=== PATIENT | female | born 1970 | race African-American/Black ===

== ENCOUNTER 2017-01-23 14:16 | Emergency (ER) | payer OTHER ==
[~2017-01-23] VITALS: Ht 162.6 cm; Wt 72.6 kg
[~2017-01-23 14:16] MED LIST: COLACE100 MG ORAL; IBUPROFEN600 MG ORAL; NORCO 5-325 TA1 EACH ORAL; ROBAXIN-750750 MG PO
[2017-01-23] MEDS ORDERED: NKM (14:47)
[2017-01-23 14:52] VITALS: BP 117/74
[2017-01-23] MEDS ORDERED: Ketorolac 60mg Inj IM ONE (15:00)
--- NOTE | 2017-01-23 15:05 | Emergency Room Report ---
History of Present Illness General Chief Complaint: Neck Pain Source: Patient Present Illness HPI 46-year-old female presents emergency department complaining of right-sided neck tightness that radiates down into the shoulder and upper back x3 weeks. Patient denies appreciable fall or trauma. 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 Patient denies erythema, clicking, pain with range of motion. Patient states discomfort feels, tight and swollen all along the right side denies midline neck pain or back pain. Patient reports on occasion will radiate up her and caused headache. Denies nausea, vomiting, fevers, chills, recent illness or ill contacts. Denies numbness tingling or loss of sensation or gross motor movements of the extremities, incontinence of bowel or bladder. Denies CP, Palpitations, LOC, AMS, dizziness, Changes in Vision, Sensation, paresthesias, or a sudden severe headache. Allergies: Coded Allergies: SULFAMETHOXAZOLE (Unverified Allergy, Severe, 03/11/15) TRIMETHOPRIM (Unverified Allergy, Severe, 03/11/15) PHENAZOPYRIDINE (Verified Allergy, Unknown, 03/11/15) Patient History Past Medical History: see triage record Past Surgical History: none Pertinent Family History: none Last Menstrual Period: 01/16/17 Now: No Immunizations: UTD Reviewed Nursing Documentation: PMH: Agreed, PSxH: Agreed Nursing Documentation-PMH Past Medical History: No Stated History Hx Gastrointestinal Problems: Yes - HEMORRHOIDS Review of Systems All Other Systems: negative except mentioned in HPI Physical Exam Vital Signs Date Time Temp Pulse Resp B/P Pulse Ox O2 Delivery O2 Flow Rate FiO2 01/23/17 14:40 98.1 64 20 117/74 96 Room Air Sp02 EP Interpretation: reviewed, normal General Appearance: no apparent distress, alert, GCS 15, non-toxic Head: normocephalic, atraumatic Eyes: bilateral eye PERRL, bilateral eye normal inspection ENT: hearing grossly normal, normal pharynx, no angioedema, normal voice, TMs + canals normal, uvula midline Neck: full range of motion, supple/symm/no masses, tender lateral - right lateral TTP of the neck, and rhomboid, no bony ttp, no midline ttp, FROM, no erythema, no obvious deformity. Respiratory: chest non-tender, lungs clear, normal breath sounds, speaking full sentences Cardiovascular #1: regular rate, rhythm, no edema, normal capillary refill Cardiovascular #2: 2+ radial (R), 2+ radial (L) Rectal: deferred Genitourinary: normal inspection Musculoskeletal: back normal, gait/station normal, normal range of motion, non- tender, tender - right lateral TTP of the neck, and rhomboid, no bony ttp, no midline ttp, FROM, no erythema, no obvious deformity. Neurologic: alert, oriented x3, responsive, motor strength/tone normal, sensory intact, speech normal Psychiatric: judgement/insight normal, memory normal, mood/affect normal Skin: normal color, no rash, warm/dry, well hydrated Lymphatic: no adenopathy Medical Decision Making PA Attestation Dr. Trotter is my supervising Physician whom patient management has been discussed with. Diagnostic Impression: Primary Impression: Neck muscle spasm Additional Impression: Neck muscle strain Qualified Codes: S16.1XXA - Strain of muscle, fascia and tendon at neck level , initial encounter ER Course 46-year-old female presents emergency department complaining of right-sided neck tightness that radiates down into the shoulder and upper back x3 weeks. Patient denies appreciable fall or trauma. 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 Patient denies erythema, clicking, pain with range of motion. Patient states discomfort feels, tight and swollen all along the right side denies midline neck pain or back pain. Patient reports on occasion will radiate up her and caused headache. Denies nausea, vomiting, fevers, chills, recent illness or ill contacts. - no Saddle anesthesia Ddx considered but are not limited to Fracture, dislocation, contusion, Sprain/ Strain/Spasm. Vital signs: are WNL, pt. is afebrile H&PE are most consistent with muscular strain/spasm of neck right side. ORDERS: - X-ray not required at this time no bony tenderness on PE. no focal neurological deficits ED INTERVENTIONS: - Toradol IM -d/w pt. will try conservative management, and to follow up with PCP. D/w pt. to return promptly to ED with worsening or new symptoms. DISCHARGE: At this time pt. is stable for d/c to home. Will provide printed patient care instructions, and any necessary prescriptions. Care plan and follow up instructions have been discussed with the patient prior to discharge. Last Vital Signs Date Time Temp Pulse Resp B/P Pulse Ox O2 Delivery O2 Flow Rate FiO2 01/23/17 14:52 98.1 64 20 117/74 96 Room Air Disposition: HOME, SELF-CARE Condition: Stable Scripts Ibuprofen* (MOTRIN*) 400 Mg Tablet 400 MG ORAL THREE TIMES A DAY for 10 Days, #30 TAB 0 Refills Prov: Minerva Jiménez 01/23/17 Carisoprodol* (SOMA*) 350 Mg Tablet 350 MG PO ONCE, #1 TAB Prov: Minerva Jiménez 01/23/17 Cyclobenzaprine Hcl* (FLEXERIL*) 10 Mg Tablet 10 MG ORAL THREE TIMES A DAY for 7 Days, #21 TAB Prov: Minerva Jiménez 01/23/17 Departure Forms: Return to Work Return to Work Date: January 26, 2017 Work Restrictions: No Heavy Lifting, No Prolonged Standing Other Restrictions: light duty x 1 week. Return to Full Activity: February 01, 2017 Patient Instructions: Muscle Cramps and Spasms, [id number], Muscle Strain, [id number] Additional Instructions: Take medications as directed. Follow up with PCP in 3-5 days Return sooner to ED if new symptoms occur, or current symptoms become worse. Do not drink alcohol, drive, or operate heavy machinery while taking muscle relaxers as this may cause drowsiness. - Please note that this Emergency Department Report was dictated using [employer] maker technology software, occasionally this can lead to erroneous entry secondary to interpretation by the dictation equipment. Minerva Jiménez January 23, 2017 15:05
[2017-01-23] MEDS ORDERED: IBUPROFEN400 MG ORAL (15:10)
[2017-01-23] MEDS ORDERED: CYCLOBENZAPRINE10 MG ORAL (15:10)
[2017-01-23] MEDS ORDERED: SOMA350 MG PO (15:10)
[2017-01-23 15:20] VITALS: BP 117/74
== END 2017-01-23 15:40 | disposition home or self-care (01) ==
LOC: EMR 15:22
DX: M62.838 Other muscle spasm (principal); S16.1XXA Strain of muscle, fascia and tendon at neck level, initial encounter; X58.XXXA Exposure to other specified factors, initial encounter; Y92.89 Other specified places as the place of occurrence of the external cause
CPT/HCPCS: 96372; 99284

== ENCOUNTER 2018-09-04 17:00 | Emergency (ER) | payer OTHER ==
[~2018-09-04] VITALS: Ht 162.6 cm; Wt 74.4 kg
[~2018-09-04 17:00] MED LIST changes: +CYCLOBENZAPRINE10 MG ORAL; +IBUPROFEN400 MG ORAL; +NKM; +SOMA350 MG PO
[2018-09-04 18:44] VITALS: BP 124/79
[2018-09-04] MEDS ORDERED: ASPIR-LOW81 MG ORAL (19:16)
[2018-09-04 19:23] VITALS: BP 121/81
--- NOTE | 2018-09-05 09:12 | Diagnostic Imaging Report ---
Indications: Head pain, tingling sensation in left-sided face, radiating to left arm Technique: Spiral acquisitions obtained through the brain. Angled axial and coronal 5 x 5 mm slices were reconstructed. Total dose length product 1308.93 mGycm. CTDI vol(s) 70.38 mGy. Dose reduction achieved using automated exposure control Comparison: None. Findings: There is normal anatomic variant of cavum septum pellucidum. No acute intracranial hemorrhage or edema, mass effect, nor midline shift. Normal king-white differentiation. Normal-sized ventricles and extra-axial CSF spaces. Intact calvarium. Visualized orbits and sinuses are unremarkable. Impression: Negative This agrees with the preliminary interpretation provided overnight by [facility]erad[facility] service. The CT scanner at [facility] is accredited by the [employer] and the scans are performed using protocols designed to limit radiation exposure to as low as reasonably achievable to attain images of sufficient resolution adequate for diagnostic evaluation.
--- NOTE | 2018-09-05 14:46 | Emergency Room Report ---
History of Present Illness General Chief Complaint: General Complaint Source: Patient Present Illness HPI Patient is a 48 female presented after increased left-sided facial and arm numbness. Patient reports having prior history of chronic pain.Patient states that she had been having symptoms for approximately 2 days. Patient had previously been told this was related to prior back injury. Patient reports having no weakness. She denies any severe headache. She had not been vomiting. She denies any recent head trauma. She denied any voice changes or double vision. Allergies: Coded Allergies: SULFAMETHOXAZOLE (Unverified Allergy, Severe, 03/11/15) TRIMETHOPRIM (Unverified Allergy, Severe, 03/11/15) PHENAZOPYRIDINE (Verified Allergy, Unknown, 03/11/15) Patient History Past Medical History: see triage record Reviewed Nursing Documentation: PMH: Agreed; PSxH: Agreed Nursing Documentation-PMH Hx Gastrointestinal Problems: Yes - HEMORRHOIDS Review of Systems All Other Systems: negative except mentioned in HPI Physical Exam Vital Signs Date Time Temp Pulse Resp B/P (MAP) Pulse Ox O2 Delivery O2 Flow Rate FiO2 09/04/18 17:03 98.1 60 17 130/85 98 Room Air General Appearance: well appearing, no apparent distress, alert, GCS 15 Head: normocephalic, atraumatic Eyes: bilateral eye PERRL ENT: hearing grossly normal, normal voice Neck: full range of motion, supple Respiratory: lungs clear, normal breath sounds, no respiratory distress, speaking full sentences Cardiovascular #1: normal inspection, normal peripheral pulses, regular rate, rhythm, no edema Gastrointestinal: normal bowel sounds, non tender Musculoskeletal: normal inspection, back normal, digits/nails normal, normal range of motion, no calf tenderness Neurologic: normal inspection, alert, oriented x3, responsive, bessemer bottom maker III-XII nml as tested, motor strength/tone normal, DTRs symmetric, cerebellar normal, normal gait, speech normal Psychiatric: normal inspection, judgement/insight normal, mood/affect normal Skin: no rash Medical Decision Making Diagnostic Impression: Primary Impression: Paresthesia ER Course Patient presented for left-sided numbness. Differential diagnosis include was not limited to CVA, subarachnoid hemorrhage, multiple sclerosis, myocardial infarction among others. Because of complexity of patient's case imaging studies were ordered. 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 EKG interpreted by me showed normal sinus rhythm without acute ST or T wave changes. Patient was advised to the CT findings. Patient was advised to follow-up with her primary care physician for neurology referral. She was advised that she may need MRI for further workup. She is advised to return if she began having worsening headache persistent vomiting weakness or other concerns Last Vital Signs Date Time Temp Pulse Resp B/P (MAP) Pulse Ox O2 Delivery O2 Flow Rate FiO2 09/04/18 19:23 98.4 86 18 121/81 98 Room Air Status: unchanged Disposition: HOME, SELF-CARE Condition: Stable Scripts Aspirin* (ASPIR-LOW*) 81 Mg Tablet. 81 MG ORAL DAILY, #30 TAB Prov: Clayton Huertas MD 09/04/18 Referrals: [facility]ERR[facility] (PCP) Patient Instructions: Paresthesia Additional Instructions: Follow up with your physician in 1-2 days. Return if worse Clayton Huertas MD Sep 05, 2018 14:46
== END 2018-09-04 19:22 | disposition home or self-care (01) ==
LOC: EMR 19:20
DX: R20.2 Paresthesia of skin (principal); R51 Headache; Z88.2 Allergy status to sulfonamides; Z88.8 Allergy status to other drugs, medicaments and biological substances; G89.29 Other chronic pain
CPT/HCPCS: 70450; 81025; 93005; 99284

== ENCOUNTER 2019-06-22 20:10 | Emergency (ER) | payer OTHER ==
[~2019-06-22] VITALS: Ht 162.6 cm; Wt 59.0 kg
[~2019-06-22 20:10] MED LIST changes: +ASPIR-LOW81 MG ORAL
--- NOTE | 2019-06-22 20:27 | Emergency Room Report ---
History of Present Illness General Chief Complaint: Eye Problems Source: Patient Present Illness HPI 49-year-old female with no significant past medical history here complaining of feeling uncomfortable in the right eye x3 days. Patient reports that her symptoms started after she was working out at the gym. Denies any foreign body being in her eye, chemical exposure, discharge from the eye. Denies photophobia , blurry vision, pain in her eye. Complains of minimal irritation and pruritus in the eye. Patient does not wear any contact lenses. Denies having history of pterygium and pinguecula. Has not taken medication for symptom relief. A pinguecula Noted as well as subconjunctival hemorrhage in the right eye. Patient has full vision and no apparent distress. Allergies: Coded Allergies: SULFAMETHOXAZOLE (Unverified Allergy, Severe, 03/11/15) TRIMETHOPRIM (Unverified Allergy, Severe, 03/11/15) PHENAZOPYRIDINE (Verified Allergy, Unknown, 03/11/15) Patient History Past Medical History: see triage record Past Surgical History: unable to obtain Pertinent Family History: none Last Menstrual Period: 05/26/19 Now: No : 8 Para: 4 Reviewed Nursing Documentation: PMH: Agreed; PSxH: Agreed Nursing Documentation-PMH Past Medical History: No Stated History Hx Gastrointestinal Problems: Yes - HEMORRHOIDS Review of Systems All Other Systems: negative except mentioned in HPI Physical Exam Vital Signs Date Time Temp Pulse Resp B/P (MAP) Pulse Ox O2 Delivery O2 Flow Rate FiO2 06/22/19 20:14 98.1 92 16 119/81 (94) 97 Room Air Sp02 EP Interpretation: reviewed, normal General Appearance: no apparent distress, alert, GCS 15, non-toxic Head: normocephalic, atraumatic Eyes: right eye other - subconjunctival hemorrhage, pinguecula ENT: hearing grossly normal, normal pharynx, no angioedema, normal voice Neck: full range of motion, supple/symm/no masses Respiratory: chest non-tender, lungs clear, normal breath sounds, no wheezing, speaking full sentences Cardiovascular #1: regular rate, rhythm, no edema, no murmur Gastrointestinal: normal bowel sounds, non tender, soft, non-distended, no guarding, no rebound Genitourinary: normal inspection, no CVA tenderness Musculoskeletal: back normal, gait/station normal, normal range of motion, non- tender Neurologic: normal inspection, alert, oriented x3, responsive Psychiatric: judgement/insight normal, memory normal, mood/affect normal, no suicidal/homicidal ideation Skin: no rash Lymphatic: no adenopathy Medical Decision Making PA Attestation All my diagnosis and treatment plans were reviewed ad discussed with my supervising physician Dr. Hui Diagnostic Impression: Primary Impression: Pinguecula of right eye Additional Impression: Subconjunctival hemorrhage of right eye ER Course 49-year-old female with no significant past medical history here complaining of feeling uncomfortable in the right eye x3 days. Patient reports that her symptoms started after she was working out at the gym. Denies any foreign body being in her eye, chemical exposure, discharge from the eye. Denies photophobia , blurry vision, pain in her eye. Complains of minimal irritation and pruritus in the eye. Patient does not wear any contact lenses. Denies having history of pterygium and pinguecula. Has not taken medication for symptom relief. pinguecula Noted as well as subconjunctival hemorrhage in the right eye. Patient has full vision and no apparent distress. Ddx considered but are not limited to: bacterial conjunctivitis, allergic conjunctivitis, viral conjunctivitis, periorbital cellulitis, global trauma, pinguecula, pterygium, subconjunctival hemorrhage Vital signs: are WNL, pt. is afebrile H&PE are most consistent with: Subconjunctival hemorrhage, pinguecula ORDERS: Zaditor ED INTERVENTIONS: None required at this time. DISCHARGE: At this time pt. is stable for d/c to home. Will provide printed patient care instructions, and any necessary prescriptions. Care plan and follow up instructions have been discussed with the patient prior to discharge. Take medication as directed follow-up with your primary care provider and steel placer if worsening symptoms return to the emergency room Last Vital Signs Date Time Temp Pulse Resp B/P (MAP) Pulse Ox O2 Delivery O2 Flow Rate FiO2 06/22/19 20:14 98.1 92 16 119/81 (94) 97 Room Air Disposition: HOME, SELF-CARE Condition: Stable Scripts Ketotifen Fumarate (ZADITOR) 5 Ml Drops 1 DROP RIGHT EYE BID for 7 Days, #5 ML 0 Refills Prov: Sahelimoghavami,Nahal PA 06/22/19 Patient Instructions: Subconjunctival Hemorrhage Additional Instructions: Follow-up with an steel placer avoid strenuous physical activity worsening symptoms return to the emergency room Adrienne Gilliam Jun 22, 2019 20:27
--- NOTE | 2019-06-22 20:28 | NUR ---
ED Nurse Note: Patient presents with complaints left eye irritaion, no known cause, x 2 days. denies pain. visual acuitiy 20/20; right eye 20/20; left eye 20/20. a04. nad. vss
[2019-06-22 20:29] VITALS: BP 119/81
[2019-06-22] MEDS ORDERED: ZADITOR5 ML RIGHT EYE (20:29)
--- NOTE | 2019-06-22 20:30 | NUR ---
ER DISCHARGE NOTE: Patient is cleared to be discharged per ERMD, pt is aox4, on room air, with stable vital signs. pt was given dc and prescription instructions, pt was able to verbalize understanding, pt id bandremoved. pt is able to ambulate with steady gait. pt took all belongings.
[2019-06-22 20:33] VITALS: BP 119/81
== END 2019-06-22 20:30 | disposition home or self-care (01) ==
LOC: EMR 20:27
DX: H11.151 Pinguecula, right eye (principal); H11.31 Conjunctival hemorrhage, right eye; Z88.2 Allergy status to sulfonamides; Z88.1 Allergy status to other antibiotic agents; Z88.8 Allergy status to other drugs, medicaments and biological substances
CPT/HCPCS: 99282

== ENCOUNTER 2020-02-10 20:36 | Emergency (ER) | payer OTHER ==
[~2020-02-10] VITALS: Ht 162.6 cm; Wt 76.2 kg
[~2020-02-10 20:36] MED LIST changes: +ZADITOR5 ML RIGHT EYE
--- NOTE | 2020-02-10 20:49 | Emergency Room Report ---
History of Present Illness General Chief Complaint: General Complaint Source: Patient (Pennie Page DO) Present Illness HPI This patient states that she has had vaginal bleeding and rectal bleeding for the past few days. She also has pain in her left lower quadrant of her abdomen. She denies diarrhea. She denies cough or congestion. She denies chest pain. She denies shortness of breath. She has no other complaints. (Pennie Page DO) Allergies: Coded Allergies: SULFAMETHOXAZOLE (Unverified Allergy, Severe, 03/11/15) TRIMETHOPRIM (Unverified Allergy, Severe, 03/11/15) PHENAZOPYRIDINE (Verified Allergy, Unknown, 03/11/15) COVID-19 Screening Contact w/high risk pt: No Recent Travel to affected area: No Experienced COVID-19 symptoms?: Yes COVID-19 symptoms experienced: Fever (T>100.4F or >38C) COVID-19 Testing performed KILNMAN: No (Pennie Page DO) Patient History Past Medical History: none Social History: Denies: smoking, alcohol use, drug use Last Menstrual Period: 01/27/20 Now: No Reviewed Nursing Documentation: PMH: Agreed; PSxH: Agreed (Pennie Page DO) Nursing Documentation-PMH Past Medical History: No Stated History Hx Gastrointestinal Problems: Yes - HEMORRHOIDS (Pennie Page DO) Review of Systems All Other Systems: negative except mentioned in HPI (Pennie Page DO) Physical Exam Vital Signs Date Time Temp Pulse Resp B/P (MAP) Pulse Ox O2 Delivery O2 Flow Rate FiO2 02/10/20 20:41 100.4 106 19 124/85 (98) 98 Sp02 EP Interpretation: reviewed, normal General Appearance: no apparent distress, alert, GCS 15, non-toxic Head: normocephalic, atraumatic Eyes: bilateral eye normal inspection, bilateral eye PERRL ENT: hearing grossly normal, normal pharynx, no angioedema, normal voice Neck: full range of motion, supple/symm/no masses Respiratory: no respiratory distress, no retraction, no accessory muscle use, speaking full sentences Gastrointestinal: normal bowel sounds, soft, non-distended, no guarding, no rebound, tenderness - TTP in the LLQ Rectal: deferred Musculoskeletal: back normal, normal range of motion, gait/station normal, non- tender Neurologic: alert, motor strength/tone normal, oriented x3, sensory intact, responsive, speech normal Psychiatric: judgement/insight normal, memory normal, mood/affect normal, no suicidal/homicidal ideation Skin: no rash, normal color (Pennie Page DO) Medical Decision Making Diagnostic Impression: Primary Impression: Fever Additional Impressions: Abdominal pain UTI (urinary tract infection) ER Course This patient presents with abdominal pain and is found to have a fever. Initially I suspected this was aggravation of the patient's known hemorrhoids, however, the fever and the pain in the left lower quadrant may be concerned for an intra-abdominal process. Therefore, I felt I should obtain a CT of the abdomen and pelvis. The patient is also pending labs at the time of this dictation. The patient is turned over to Dr. Stark. Please see his addendum for final results, impressions and disposition. Laboratory Tests Test 02/10/20 20:53 02/10/20 21:20 Urine Color Pale yellow Urine Appearance Very cloudy Urine pH 5 (4.5-8.0) Urine Specific [place] 1.015 (1.005-1.035) Urine Protein 2+ (NEGATIVE) H Urine Glucose (UA) Negative (NEGATIVE) Urine Ketones Negative (NEGATIVE) Urine Blood 5+ (NEGATIVE) H Urine Nitrite Negative (NEGATIVE) Urine Bilirubin Negative (NEGATIVE) Urine Urobilinogen Normal MG/DL (0.0-1.0) Urine Leukocyte Esterase 2+ (NEGATIVE) H Urine RBC Tntc /HPF (0 - 2) H Urine WBC 5-10 /HPF (0 - 2) H Urine Squamous Epithelial Cells Moderate /LPF (NONE/OCC) H Urine Bacteria Few /HPF (NONE) Urine HCG, Qualitative Negative (NEGATIVE) White Blood Count 11.2 K/UL (4.8-10.8) H Red Blood Count 4.04 M/UL (4.20-5.40) L Hemoglobin 11.8 G/DL (12.0-16.0) L Hematocrit 36.2 % (37.0-47.0) L Mean Corpuscular Volume 90 FL (80-99) Mean Corpuscular Hemoglobin 29.1 PG (27.0-31.0) Mean Corpuscular Hemoglobin Concent 32.5 G/DL (32.0-36.0) Red Cell Distribution Width 13.1 % (11.6-14.8) Platelet Count 330 K/UL (150-450) Mean Platelet Volume 6.4 FL (6.5-10.1) L Neutrophils (%) (Auto) 71.9 % (45.0-75.0) Lymphocytes (%) (Auto) 19.8 % (20.0-45.0) L Monocytes (%) (Auto) 6.7 % (1.0-10.0) Eosinophils (%) (Auto) 0.5 % (0.0-3.0) Basophils (%) (Auto) 1.2 % (0.0-2.0) Prothrombin Time 11.4 SEC (9.30-11.50) Prothrombin Time INR 1.0 (0.9-1.1) Activated Partial Thromboplast Time 28 SEC (23-33) Sodium Level 140 MMOL/L (136-145) Potassium Level 3.6 MMOL/L (3.5-5.1) Chloride Level 105 MMOL/L (98-107) Carbon Dioxide Level 24 MMOL/L (21-32) Anion Gap 11 mmol/L (5-15) Blood Urea Nitrogen 15 mg/dL (7-18) Creatinine 1.1 MG/DL (0.55-1.30) Estimated Glomerular Filtration Rate > 60 mL/min (>60) Glucose Level 103 MG/DL (74-106) Calcium Level 8.8 MG/DL (8.5-10.1) Total Bilirubin 0.6 MG/DL (0.2-1.0) Aspartate Amino Transferase (AST) 28 U/L (15-37) Alanine Aminotransferase (ALT) 27 U/L (12-78) Alkaline Phosphatase 65 U/L (46-116) Total Protein 7.7 G/DL (6.4-8.2) Albumin 3.7 G/DL (3.4-5.0) Globulin 4.0 g/dL Albumin/Globulin Ratio 0.9 (1.0-2.7) L (Damien Pagea Andrei. ) ER Course This patient was signed out to me. She presents with subjective fever abdominal pain rectal bleeding. CT scan was signed out to me. CT scan was unremarkable. Urinalysis show possible infection. I placed her on antibiotics. Patient was discharged home. (Sunny Stark MD) CT/MRI/US Diagnostic Results CT/MRI/US Diagnostic Results : Imaging Test Ordered: CT abd/pelvis Impression Pending. (Pennie Page DO) CT/MRI/US Diagnostic Results : Imaging Test Ordered: CT abdomen and pelvis Impression Read by radiologist. No acute process. (Sunny Stark MD) Last Vital Signs Date Time Temp Pulse Resp B/P (MAP) Pulse Ox O2 Delivery O2 Flow Rate FiO2 02/10/20 20:41 100.4 106 19 124/85 (98) 98 (Pennie Page DO) Status: improved (Sunny Stark MD) Disposition: HOME, SELF-CARE Condition: Stable Pennie Page DO February 10, 2020 20:49 Sunny Stark MD February 11, 2020 02:58
[2020-02-10 20:50] VITALS: BP 124/85
--- NOTE | 2020-02-10 20:50 | NUR ---
ED Nurse Note: Pt ambulated into ed from home CO lower abdominal pain 3/10 with bleeding bright red blood from vagina and rectum x2 weeks. Pt states recent onset of fatigue x 3 days. Pt denies injury to area. Pt states hx of hemorrhoids. Pt aao x 4, ambulatory with steady gait. awaiting ERMD at bedside
--- NOTE | 2020-02-10 20:51 | NUR ---
ED Nurse Note: UA sent to lab
[2020-02-10] MEDS ORDERED: Omnipaque-300 100ml vial INJ PRN (21:00)
--- NOTE | 2020-02-10 21:04 | NUR ---
ED Nurse Note: ERMD at bedside
[2020-02-10 21:14] LABS: APPEARANCE,URINE VERY CLOUDY; BILIRUBIN, URINE NEGATIVE (NEGATIVE); COLOR,URINE PALE YELLOW; GLUCOSE, URINE (UA) NEGATIVE (NEGATIVE); KETONES,URINE NEGATIVE (NEGATIVE); LEUKOCYTE ESTERASE ,URINE 2+ (NEGATIVE); NITRITE,URINE NEGATIVE (NEGATIVE); PH,URINE 5 (4.5-8.0); PROTEIN,URINE 2+ (NEGATIVE); UROBILINOGEN,URINE NORMAL MG/DL (0.0-1.0)
--- NOTE | 2020-02-10 21:20 | NUR ---
ED Nurse Note: Iv initiated, blood drawn and sent to lab. All medications administered, pt tolerated well no ss of distress noted. Will continue to monitor.
[2020-02-10 21:28] LABS: BASOPHILS % (AUTO) 1.2 % (0.0-2.0); EOSINOPHILS % (AUTO) 0.5 % (0.0-3.0); HEMATOCRIT 36.2 % (37.0-47.0); HEMOGLOBIN 11.8 G/DL (12.0-16.0); LYMPHOCYTES % (AUTO) 19.8 % (20.0-45.0); MEAN CORPUSCULAR VOLUME 90 FL (80-99); MONOCYTES % (AUTO) 6.7 % (1.0-10.0); NEUTROPHILS % (AUTO) 71.9 % (45.0-75.0); PLATELET COUNT 330 K/UL (150-450); RED BLOOD COUNT 4.04 M/UL (4.20-5.40); RED CELL DISTRIBUTION WIDTH 13.1 % (11.6-14.8); WHITE BLOOD COUNT 11.2 K/UL (4.8-10.8)
[2020-02-10 21:37] LABS: ANION GAP 11 mmol/L (5-15); BLOOD UREA NITROGEN 15 mg/dL (7-18); CALCIUM 8.8 MG/DL (8.5-10.1); CARBON DIOXIDE 24 MMOL/L (21-32); CHLORIDE 105 MMOL/L (98-107); CREATININE 1.1 MG/DL (0.55-1.30); POTASSIUM 3.6 MMOL/L (3.5-5.1); SODIUM 140 MMOL/L (136-145)
[2020-02-10 21:41] LABS: ALANINE AMINOTRANSFERASE 27 U/L (12-78); ALBUMIN 3.7 G/DL (3.4-5.0); ALBUMIN/GLOBULIN RATIO 0.9 (1.0-2.7); ALKALINE PHOSPHATASE 65 U/L (46-116); ASPARTATE AMINO TRANSFERASE 28 U/L (15-37); BILIRUBIN,TOTAL 0.6 MG/DL (0.2-1.0)
--- NOTE | 2020-02-10 21:46 | NUR ---
ED Nurse Note: pt taken to CTin stable condition. VSS no ss of distress noted.
--- NOTE | 2020-02-10 22:05 | NUR ---
ED Nurse Note: pt returned from ct in stable condition
[2020-02-10 22:50] VITALS: BP 121/76
--- NOTE | 2020-02-11 01:52 | Diagnostic Imaging Report ---
EXAM: CT Abdomen and Pelvis With Intravenous Contrast CLINICAL HISTORY: ABD PAIN TECHNIQUE: Axial computed tomography images of the abdomen and pelvis with intravenous contrast. CTDI is 7.5 mGy and DLP is 404 mGy-cm. One or more of the following dose reduction techniques were used: automated exposure control, adjustment of the mA and/or kV according to patient size, use of iterative reconstruction technique. Coronal and sagittal reformatted images were created and reviewed. COMPARISON: 10/05/2013 FINDINGS: Lung bases: Unremarkable. No mass. No consolidation. ABDOMEN: Liver: Unremarkable. No mass. Gallbladder and bile ducts: Unremarkable. No calcified stones. No ductal dilation. Pancreas: Unremarkable. No mass. No ductal dilation. Spleen: Unremarkable. No splenomegaly. Adrenals: Unremarkable. No mass. Kidneys and ureters: Unremarkable. No solid mass. No hydronephrosis. Stomach and bowel: Distended stomach with heterogeneous contents, this is of uncertain significance and likely represents ingested contents. Correlate with patient history. No mucosal thickening. PELVIS: Appendix: No findings to suggest acute appendicitis. Bladder: Unremarkable. No mass. Reproductive: Unremarkable as visualized. ABDOMEN and PELVIS: Intraperitoneal space: Unremarkable. No free air. No significant fluid collection. Bones/joints: No acute fracture. No dislocation. Soft tissues: Small fat-containing periumbilical hernia. Remaining soft tissue structures unremarkable. Vasculature: Unremarkable. No abdominal aortic aneurysm. Lymph nodes: Unremarkable. No enlarged lymph nodes. Other findings: Otherwise unremarkable study. IMPRESSION: 1. Distended stomach with heterogeneous contents, this is of uncertain significance and likely represents ingested contents. Correlate with patient history. 2. Otherwise no acute abnormality definitively identified to account for patient presentation. 3. Additional benign and chronic as above 4. Otherwise unremarkable study.
--- NOTE | 2020-02-11 03:17 | NUR ---
[facility] For 02/11/2020 From 2200 to 0215, the following electronic documentation will be located in the patient handwritten chart, Following patient discharge, paper documentation will be scanned into EPF with the remainder of the paper chart. Nursing Documentation Physician orders Medication Administration Records Medication Reconciliation Respiratory Documentation Dietary Documentation Case Management Documentation Office Services Associate Documentation
== END 2020-02-10 22:50 | disposition home or self-care (01) ==
LOC: EMR 20:53
DX: N39.0 Urinary tract infection, site not specified (principal); R50.9 Fever, unspecified; K62.5 Hemorrhage of anus and rectum; N93.9 Abnormal uterine and vaginal bleeding, unspecified; Z88.2 Allergy status to sulfonamides; Z88.8 Allergy status to other drugs, medicaments and biological substances
CPT/HCPCS: 36415; 74177; 80053; 81003; 81025; 85025; 85610; 85730; 96360; J7030; Q9967; Z7502; 99284

== ENCOUNTER 2020-10-17 16:46 | Emergency (ER) | payer OTHER ==
[~2020-10-17] VITALS: Ht 162.6 cm; Wt 78.0 kg
[2020-10-17 17:29] VITALS: BP 130/78
[2020-10-17 17:38] LABS: APPEARANCE,URINE CLEAR; BILIRUBIN, URINE NEGATIVE (NEGATIVE); GLUCOSE, URINE (UA) NEGATIVE (NEGATIVE); KETONES,URINE NEGATIVE (NEGATIVE); LEUKOCYTE ESTERASE ,URINE NEGATIVE (NEGATIVE); NITRITE,URINE NEGATIVE (NEGATIVE); PH,URINE 6 (4.5-8.0); PROTEIN,URINE NEGATIVE (NEGATIVE); UROBILINOGEN,URINE NORMAL MG/DL (0.0-1.0)
[2020-10-17 17:47] LABS: COLOR,URINE YELLOW
[2020-10-17 18:15] LABS: ANION GAP 7 mmol/L (5-15); BLOOD UREA NITROGEN 12 mg/dL (7-18); CALCIUM 8.4 MG/DL (8.5-10.1); CARBON DIOXIDE 28 MMOL/L (21-32); CHLORIDE 105 MMOL/L (98-107); POTASSIUM 3.4 MMOL/L (3.5-5.1); SODIUM 140 MMOL/L (136-145)
[2020-10-17 18:18] LABS: BASOPHILS % (AUTO) 1.3 % (0.0-2.0); EOSINOPHILS % (AUTO) 2.7 % (0.0-3.0); HEMATOCRIT 35.5 % (37.0-47.0); HEMOGLOBIN 11.5 G/DL (12.0-16.0); LYMPHOCYTES % (AUTO) 35.2 % (20.0-45.0); MEAN CORPUSCULAR VOLUME 89 FL (80-99); MONOCYTES % (AUTO) 5.5 % (1.0-10.0); NEUTROPHILS % (AUTO) 55.2 % (45.0-75.0); PLATELET COUNT 363 K/UL (150-450); RED BLOOD COUNT 3.99 M/UL (4.20-5.40); RED CELL DISTRIBUTION WIDTH 13.2 % (11.6-14.8); WHITE BLOOD COUNT 7.4 K/UL (4.8-10.8)
[2020-10-17 18:26] LABS: ALANINE AMINOTRANSFERASE 28 U/L (12-78); ALBUMIN 3.6 G/DL (3.4-5.0); ALBUMIN/GLOBULIN RATIO 0.9 (1.0-2.7); ALKALINE PHOSPHATASE 70 U/L (46-116); ASPARTATE AMINO TRANSFERASE 30 U/L (15-37); BILIRUBIN,TOTAL 0.8 MG/DL (0.2-1.0)
--- NOTE | 2020-10-17 19:13 | NUR ---
ED Nurse Note: Received report from JOVANY Gold. Pt is stable with no new complaints at this time. Assumed care of pt.
[2020-10-17] MEDS ORDERED: Omnipaque 350 100ml vial INJ PRN (19:45)
--- NOTE | 2020-10-17 19:59 | Emergency Room Report ---
History of Present Illness General Chief Complaint: Female Urogenital Problems Source: Patient Present Illness HPI 50-year-old female with no significant medical history here complaining of vaginal bleeding after urination, after defecation, and upon straining. Reports that she usually has a sedentary lifestyle, trip to [place] airplane 3 weeks ago, sitting in airplane for 6 hours sensing bilateral swelling and pain every morning. Patient also started to "work out." Few days ago. Denies any chest pain however complains of generalized fatigue. Denies cough or congestion, diarrhea, nausea vomiting. Denies urinary frequency urgency. Denies blood in stool. Denies . Reports her last menstrual period was on September 25, 2020 and after termination patient has been having bleeding post urination, straining, and every time that she makes a bowel movement however with bleeding through the vaginal canal. Denies taking any blood thinners. Allergies: Coded Allergies: SULFAMETHOXAZOLE (Unverified Allergy, Severe, 03/11/15) TRIMETHOPRIM (Unverified Allergy, Severe, 03/11/15) PHENAZOPYRIDINE (Verified Allergy, Unknown, 03/11/15) COVID-19 Screening Contact w/high risk pt: No Recent Travel to affected area: No Experienced COVID-19 symptoms?: No COVID-19 symptoms experienced: Fever (T>100.4F or >38C) COVID-19 Testing performed REGIONAL AIRLINE PILOT: No Patient History Past Medical History: see triage record Past Surgical History: none Pertinent Family History: none Now: No Immunizations: UTD Reviewed Nursing Documentation: PMH: Agreed; PSxH: Agreed Nursing Documentation-PM Past Medical History: No Stated History Hx Gastrointestinal Problems: Yes - HEMORRHOIDS Review of Systems All Other Systems: negative except mentioned in HPI Physical Exam Vital Signs Date Time Temp Pulse Resp B/P (MAP) Pulse Ox O2 Delivery O2 Flow Rate FiO2 10/17/20 16:51 97.7 80 16 115/82 (93) 99 Room Air Sp02 EP Interpretation: reviewed, normal General Appearance: no apparent distress, alert, GCS 15, non-toxic Head: normocephalic, atraumatic Eyes: bilateral eye normal inspection, bilateral eye PERRL ENT: hearing grossly normal, normal pharynx, no angioedema, normal voice Neck: full range of motion, supple/symm/no masses Respiratory: chest non-tender, lungs clear, normal breath sounds, no rhonchi, no respiratory distress, no retraction, speaking full sentences Cardiovascular #1: regular rate, rhythm, no edema, no murmur Gastrointestinal: normal bowel sounds, non tender, soft, non-distended, no guarding, no rebound Rectal: deferred Genitourinary: no CVA tenderness Musculoskeletal: back normal, no calf tenderness Neurologic: alert, motor strength/tone normal, oriented x3, sensory intact, responsive, speech normal Psychiatric: judgement/insight normal, memory normal, mood/affect normal, no suicidal/homicidal ideation Skin: no rash Lymphatic: no adenopathy Medical Decision Making PA Attestation All my diagnosis and treatment plans were reviewed ad discussed with my supervising physician Dr. Hui Diagnostic Impression: Primary Impression: ovarian cysts Additional Impression: DUB (dysfunctional uterine bleeding) ER Course 50-year-old female with no significant medical history here complaining of vaginal bleeding after urination, after defecation, and upon straining. Reports that she usually has a sedentary lifestyle, trip to [place] [employer] 3 weeks ago, sitting in airplane for 6 hours sensing bilateral swelling and pain every morning. Patient also started to "work out." Few days ago. Denies any chest pain however complains of generalized fatigue. Denies cough or congestion, diarrhea, nausea vomiting. Denies urinary frequency urgency. Denies blood in stool. Denies . Reports her last menstrual period was on September 25, 2020 and after termination patient has been having bleeding post urination, straining, and every time that she makes a bowel movement however with bleeding through the vaginal canal. Denies taking any blood thinners. Ddx considered but are not limited to: PE, DVT, anemia, ovarian cyst, uterine fibroids, ovarian carcinoma, UTI Vital signs: are WNL, pt. is afebrile H&PE are most consistent with ovarian cyst, DUB ORDERS: EKG, Chest XR, troponin, CBC, CMP, UA, urine test, pelvic ultrasound, CTA, D-dimer ED INTERVENTIONS: None required at this time. DISCHARGE: At this time pt. is stable for d/c to home. Will provide printed patient care instructions, and any necessary prescriptions. Care plan and follow up instructions have been discussed with the patient prior to discharge. Follow-up with [facility] for further evaluation, follow primary care provider, if worsening symptoms return to the emergency room EKG Diagnostic Results Rate: normal Rhythm: NSR ST Segments: no acute changes Other Impression No acute ST changes ASA given to the pt in ED: No Chest X-Ray Diagnostic Results Chest X-Ray Diagnostic Results : Chest X-Ray Ordered: Yes # of Views/Limited/Complete: 1 View Indication: Other EP Interpretation: Yes PA Xray: Interpretation reviewed, by supervising MD, and agrees with findings. Interpretation: no consolidation, no effusion, no pneumothorax Impression: No acute disease Electronically Signed by: Adrienne Huynh PA-C CT/MRI/US Diagnostic Results CT/MRI/US Diagnostic Results #1: Imaging Test Ordered: Pelvic ultrasound Impression COMPARISON: None. FINDINGS: Uterus/cervix: The uterus measures 9.3 x 6.0 x 5.2 cm. The endometrium measures 6.2 mm. There is diffuse heterogeneity to the uterus, cannot exclude adenomyosis. There are small nabothian cysts within the cervix. No myometrial mass. Right ovary: The right ovary measures 2.0 x 1.3 x 2.0 cm. There is a simple cyst within the right ovary measuring 1.0 x 0.8 cm. Normal blood flow. Left ovary: The left ovary measures 1.8 x 1.4 x 2.2 cm. There is a simple cyst within the left ovary measuring 1.3 x 1.0 cm. Normal blood flow. Free fluid: No free fluid. Bladder: Unremarkable as visualized. Wall is normal thickness for degree of distention. IMPRESSION: 1. Heterogeneity throughout the uterus which may be seen with adenomyosis. No distinct uterine fibroid seen. If indicated, this may be more accurate characterized with MRI of the pelvis and nonacute setting. 2. Nonspecific bilateral ovarian cyst, remainder of the pelvic ultrasound unremarkable. CT/MRI/US Diagnostic Results #2: Imaging Test Ordered: CTA chest Impression COMPARISON: None. FINDINGS: Pulmonary arteries: No filling defect within the pulmonary arteries and aorta to suggest pulmonary embolus or aortic dissection. Aorta: No acute findings. No thoracic aortic aneurysm. Lungs: Minimal posterior dependent atelectasis. Remainder of the lung parenchyma is unremarkable. No mass. Pleural space: Unremarkable. No significant effusion. No pneumothorax. Heart: Unremarkable. No cardiomegaly. No significant pericardial effusion. No evidence of RV dysfunction. Bones/joints: No acute fracture. No dislocation. Soft tissues: Unremarkable. Lymph nodes: Unremarkable. No enlarged lymph nodes. IMPRESSION: 1. No pulmonary embolus or aortic dissection. 2. Minimal posterior dependent atelectasis otherwise no acute cardiopulmonary process. Last Vital Signs Date Time Temp Pulse Resp B/P (MAP) Pulse Ox O2 Delivery O2 Flow Rate FiO2 10/17/20 17:29 98.0 78 16 130/78 100 Room Air Disposition: HOME, SELF-CARE Condition: Stable Referrals: [facility] (PCP) Patient Instructions: Dysfunctional Uterine Bleeding, Ovarian Cyst, [id number] Additional Instructions: Follow-up with [facility] for further evaluation, follow primary care provider, if worsening symptoms return to the emergency room Adrienne Gilliam Oct 17, 2020 19:59
--- NOTE | 2020-10-17 20:09 | Diagnostic Imaging Report ---
EXAM: US Pelvis Transabdominal and Transvaginal, Complete CLINICAL HISTORY: PAIN TECHNIQUE: Real-time complete transabdominal and transvaginal pelvic ultrasound with image documentation. Transvaginal imaging was used for better evaluation of the endometrium and adnexa. COMPARISON: None. FINDINGS: Uterus/cervix: The uterus measures 9.3 x 6.0 x 5.2 cm. The endometrium measures 6.2 mm. There is diffuse heterogeneity to the uterus, cannot exclude adenomyosis. There are small nabothian cysts within the cervix. No myometrial mass. Right ovary: The right ovary measures 2.0 x 1.3 x 2.0 cm. There is a simple cyst within the right ovary measuring 1.0 x 0.8 cm. Normal blood flow. Left ovary: The left ovary measures 1.8 x 1.4 x 2.2 cm. There is a simple cyst within the left ovary measuring 1.3 x 1.0 cm. Normal blood flow. Free fluid: No free fluid. Bladder: Unremarkable as visualized. Wall is normal thickness for degree of distention. IMPRESSION: 1. Heterogeneity throughout the uterus which may be seen with adenomyosis. No distinct uterine fibroid seen. If indicated, this may be more accurate characterized with MRI of the pelvis and nonacute setting. 2. Nonspecific bilateral ovarian cyst, remainder of the pelvic ultrasound unremarkable.
--- NOTE | 2020-10-17 20:42 | Diagnostic Imaging Report ---
EXAM: CT Angiography Chest With Intravenous Contrast CLINICAL HISTORY: PE TECHNIQUE: Axial computed tomographic angiography images of the chest with intravenous contrast. CTDI is 39.1 mGy and DLP is 168.4 mGy-cm. One or more of the following dose reduction techniques were used: automated exposure control, adjustment of the mA and/or kV according to patient size, use of iterative reconstruction technique. MIP reconstructed images were created and reviewed. COMPARISON: None. FINDINGS: Pulmonary arteries: No filling defect within the pulmonary arteries and aorta to suggest pulmonary embolus or aortic dissection. Aorta: No acute findings. No thoracic aortic aneurysm. Lungs: Minimal posterior dependent atelectasis. Remainder of the lung parenchyma is unremarkable. No mass. Pleural space: Unremarkable. No significant effusion. No pneumothorax. Heart: Unremarkable. No cardiomegaly. No significant pericardial effusion. No evidence of RV dysfunction. Bones/joints: No acute fracture. No dislocation. Soft tissues: Unremarkable. Lymph nodes: Unremarkable. No enlarged lymph nodes. IMPRESSION: 1. No pulmonary embolus or aortic dissection. 2. Minimal posterior dependent atelectasis otherwise no acute cardiopulmonary process.
--- NOTE | 2020-10-17 20:46 | NUR ---
ED Nurse Note: Pt recently returned from CT, reports she has no new complaints at this time.
[2020-10-17 20:47] VITALS: BP 120/75
[2020-10-17 20:57] VITALS: BP 125/72
--- NOTE | 2020-10-17 20:57 | NUR ---
ER DISCHARGE NOTE: Patient is cleared to be discharged per ERMD, pt is aox4, on room air, with stable vital signs. pt was given dc instructions, pt was able to verbalize understanding, pt id band and iv site removed without complications. pt is able to ambulate with steady gait. pt took all belongings.
--- NOTE | 2020-10-18 18:01 | Diagnostic Imaging Report ---
Indication: Chest pain Technique: One view of the chest Comparison: none Findings: Lungs and pleural spaces are clear. Heart size is normal. Impression: No acute process
--- NOTE | 2020-10-19 02:24 | Cardiology Report ---
APPROVED REPORT EKG Measurement Heart [id number] <Conclusion> Normal sinus rhythm with sinus arrhythmia Minimal voltage criteria for LVH, may be normal variant Nonspecific T wave abnormality Abnormal ECG
== END 2020-10-17 21:02 | disposition home or self-care (01) ==
LOC: EMR 17:15
DX: N83.202 Unspecified ovarian cyst, left side (principal); N83.201 Unspecified ovarian cyst, right side; N93.8 Other specified abnormal uterine and vaginal bleeding; Z88.2 Allergy status to sulfonamides; Z88.1 Allergy status to other antibiotic agents
CPT/HCPCS: 36415; 71045; 71275; 76830; 76856; 80053; 81003; 81025; 83880; 84484; 85025; 85379; 85610; 85730; 93005; Q9967; Z7502; 99284